=== PATIENT | female | born 1970 | race Two or more races ===

== ENCOUNTER 2020-05-30 17:27 | Emergency (ER) | payer OTHER, BC ==
[~2020-05-30] VITALS: Ht 162.6 cm; Wt 9.1 kg
[2020-05-30 18:50] VITALS: BP 128/88
== END 2020-05-30 18:24 | disposition home or self-care (01) ==
LOC: ER 17:28
DX: J02.9 Acute pharyngitis, unspecified (principal); R51.9 Headache, unspecified; R09.89 Other specified symptoms and signs involving the circulatory and respiratory systems; M79.10 Myalgia, unspecified site; Z20.828 Contact with and (suspected) exposure to other viral communicable diseases; I10 Essential (primary) hypertension; Z72.89 Other problems related to lifestyle
CPT/HCPCS: 36415; 87635; 99283